=== PATIENT | male | born 1970 | race Caucasian/White ===

== ENCOUNTER 2018-04-18 05:19 | Day surgery (SDC) | payer OTHER ==
[2018-04-17 13:21] VITALS: BMI 25.9
[2018-04-18] MEDS ORDERED: MIDAZOLAM HCL 2 MG/2 ML SINGLE DOSE VIAL ONE ×2 (07:56)
[2018-04-18] MEDS ORDERED: ROPIVACAINE HCL 0.5% 30ML VIAL ONE (07:58)
[2018-04-18] MEDS ORDERED: DEXAMETHASONE SOD PHOSPHATE/PF 10 MG/ML SDV ONE (07:58)
[2018-04-18] MEDS ORDERED: ONDANSETRON 4 MG/2 ML VIAL IVPUSH PRN (08:05)
[2018-04-18] MEDS ORDERED: LACTATED RINGERS SOLUTION 1,000 ML IV SCH (08:15)
--- NOTE | 2018-04-18 09:02 | HP ---
Satellite [facility] - Chief Complaint Chief Complaint: left shoulder pain - Past Medical History Allergies/Adverse Reactions: Allergies Allergy/AdvReac Type Severity Reaction Status Date / Time No Known Allergies Allergy Verified 04/17/18 13:21 - Current Medications Current Medications: Home Medications Medication Instructions Recorded Hydrocodone/Acetaminophen [Towson 1 each PO Q6H PRN #40 tablet MDD 4 04/18/18 5-325 Tablet] Satellite Physical Exam - Physical Examination Vital Signs: Vital Signs Period Temp Pulse Resp BP Sys/Jones Pulse Ox Last 24 Hr 97.6 F-97.6 F 61-61 18-18 117-117/74-74 98 General Appearance: Well Nourished, Well Developed, Alert & Oriented x3 ENT: Clear Lung: Normal air movement Heart: Regular rate & rhythm Extremities: Other (left shoulder- + ttp, decr rom, + apprehension, + neer, + lawson, nvi MRI + labral tear) Neurological: Intact, Alert, Oriented Satellite Impression/Plan - Impression/Plan Impression: left shoulder labral tear Operative Procedure: left shoulder arthroscopy with labral repair, SAD Date to be Performed: 04/18/18
[2018-04-18] MEDS ORDERED: LIDOCAINE HCL/PF 2% SDV 5ML VIAL ONE (09:57)
[2018-04-18] MEDS ORDERED: PROPOFOL 20 ML ONE (09:57)
[2018-04-18] MEDS ORDERED: DEXAMETHASONE SOD PHOSPHATE 4 MG/1 ML VIAL ONE ×2 (09:57→11:08)
[2018-04-18] MEDS ORDERED: ROCURONIUM BROMIDE 50 MG/5 ML VIAL ONE (09:58)
[2018-04-18] MEDS ORDERED: ceFAZolin SODIUM 1 GM VIAL ONE (10:07)
[2018-04-18] MEDS ORDERED: ceFAZolin SODIUM 1 GM VIAL IVPB ONE (10:07)
[2018-04-18] MEDS ORDERED: ePHEDrine SULFATE 50 MG/1 ML AMPULE ONE (10:16)
[2018-04-18] MEDS ORDERED: DESFLURANE GAS 240 ML BOTTLE IH ONE (10:36)
[2018-04-18] MEDS ORDERED: NEOSTIGMINE METHYLSULFATE 0.5 MG/ML - 10 ML MDV ONE (11:09)
[2018-04-18] MEDS ORDERED: GLYCOPYRROLATE 0.2 MG/1 ML VIAL ONE (11:10)
--- NOTE | 2018-04-18 11:15 | OP ---
Operative Note - Note: Operative Date: 04/18/18 ([facility]) Pre-Operative Diagnosis: left shoulder impingement, labral tear Operation: left shoulder arthroscopy with SAD Post-Operative Diagnosis: Same as Pre-op Surgeon: Pasquale Leung Motor Installer: Terry Cotto Anesthesiologist/DICTAPHONE TYPIST: Leo Mars Anesthesia: General, Local Specimens Removed: shavings Estimated Blood Loss (mls): 5 Operative Report Dictated: Yes
[2018-04-18 13:44] VITALS: BP 119/76; PULSE 79; TEMP 98.2
--- NOTE | 2018-04-19 15:45 | PATH ---
Surgical Pathology Report Patient Name: VIJAYA [facility]. Rec. #: [id number] /Age/Gender: 1970 (Age: 47) / M Account: [id number] Location: [facility] SURGICAL Taken: 04/18/2018 Received: 04/18/2018 Reported: 04/19/2018 Physicians: Pasquale Leung M.D. Specimen(s) Received LEFT SHOULDER SHAVINGS Clinical History Tear left shoulder Final Diagnosis SHOULDER SHAVINGS, LEFT, ARTHROSCOPY AND SUBACROMIAL DECOMPRESSION: FRAGMENTS OF BENIGN CARTILAGE, DENSE FIBROCONNECTIVE TISSUE, ADIPOSE TISSUE, AND SKELETAL MUSCLE. Electronically Signed Natalie Albert M.D. Gross Description Received in formalin, labeled "left shoulder shavings," is a 4.0 x 3.2 x 0.4 cm. aggregate of galaviz-yellow soft tissue fragments. A shared services representative portion is submitted in one cassette. /04/18/2018 saudi04/18/2018
--- NOTE | 2018-05-02 16:59 | OP ---
DATE OF OPERATION: 04/18/2018 PREOPERATIVE DIAGNOSIS: Left shoulder impingement syndrome and labral tear. POSTOPERATIVE DIAGNOSIS: Left shoulder impingement syndrome and labral tear. Plus osteoarthritis. PROCEDURE: Left shoulder arthroscopy and subacromial decompression. SURGEON: Catherine Rose M.D. TAX INTERN: France De Leon ANESTHESIOLOGIST: Leo Mars M.D. ANESTHESIA: Left interscalene block with general LMA. SPECIMENS: Arthroscopic shavings. BLOOD LOSS: 5 mL. INDICATION: This patient is a 47-year-old male with a preoperative diagnosis of chronic left shoulder pain, impingement syndrome, and posterior labral tear. After understanding the potential risks, complications, alternatives, benefits to surgery versus nonsurgical treatment, the patient elected to undergo this procedure. He understands he may not get complete relief of the symptoms depending on the quality of the labrum and the osteoarthritis. DESCRIPTION OF PROCEDURE; The patient was brought to the operating room, peripheral IV placed, IV sedation, given, 2 g of IV Ancef was given. Left interscalene block was performed. The LMA anesthesia was induced. He was placed in the beach chair position with ample padding throughout the left upper extremity. He was prepped and draped in sterile fashion. Bony landmarks were marked out with a marking pen. Posterior portal was established with a number 15 scalpel blade. Arthroscope diagnostic arthroscopy was performed. In the joint, it was immediately apparent the patient had significant osteoarthritis of both the glenoid and humeral head. There was a well defined margin. 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 There was some loose flaps, and an anterior portal was established, and with direct visualization using a spinal needle, number 15 scalpel blade and cannula was introduced into the glenohumeral joint, and the loose flaps were debrided with a straight shaver. Patient also had some fraying of the labrum, this was debrided as well. This allowed me to better visualize the labrum. The patient's labrum was intact from the 5 o'clock through the 1 o'clock position. Between 1 o'clock and 5 o'clock the posterior aspect of the labrum was somewhat frayed and degenerative, but still intact. More importantly however, the worst area of grade 4 chondromalacia was in a ring posteriorly on the glenoid right underneath this area of the glenoid labrum. The area was extensively probed and directly visualized, and there was no portion that I could see that needed or could be repaired. The undersurface of the rotator cuff looked good. Next our attention was turned to the subacromial space. The patient had tremendous amount of subacromial bursitis. Lateral portal was established under direct visualization, and an ArthroCare wand was used to do soft tissue bursectomy. After the extensive debridement of the inflammatory bursa, I top surface of the rotator cuff, it was put through a full range of motion, and although it was slightly degenerative, there were no radha tears. It was explored extensively. In addition, this exposed 2 very large bony spurs along the undersurface of the acromion, 1 at the undersurface of the distal clavicle. Both of these were taken down with 5.5-mm oval bur. The bony decompression was fine tuned in reverse and then with the straight shaver. All debris was removed. The arm was put through a full range of motion under direct visualization. There was no point of impingement. The top surface of the rotator cuff looked good. There were no other bone spurs. All instrumentation was removed. All excess saline was removed. The arthroscopy portals were closed with 3-0 nylon sutures. The area was then covered with Aquacel dressing. He was extubated, brought down out of the beach chair position. His arm was in a sling. Total operative time was about 35 minutes. There were no complications during the case. Patient tolerated the procedure well, was brought to the ambulatory recovery in stable condition. CATHERINE ROSE M.D. [id number]
== END 2018-04-18 15:02 | disposition home or self-care (01) ==
LOC: JASU-SURG 05:19
PROVIDERS: ATTEND Orthopaedic Surgery
PROC: 0PBB4ZZ Excision of Left Clavicle, Percutaneous Endoscopic Approach (ICD-10-PCS; 2018-04-18)
PROC: 0RBK4ZZ Excision of Left Shoulder Joint, Percutaneous Endoscopic Approach (ICD-10-PCS; principal; 2018-04-18 09:00)
DX: M75.42 Impingement syndrome of left shoulder (principal); S43.492A Other sprain of left shoulder joint, initial encounter; X58.XXXA Exposure to other specified factors, initial encounter; Y93.9 Activity, unspecified; Y92.9 Unspecified place or not applicable; Y99.9 Unspecified external cause status; M19.012 Primary osteoarthritis, left shoulder
CPT/HCPCS: 88304-TC; 94760